=== PATIENT | male | born 1980 | race Caucasian/White ===

== ENCOUNTER → 2019-09-15 15:06 | Outpatient (CLI) | payer OTHER, SELFPAY ==
[2019-09-15 15:37] LABS: Basophils # 0.1 K/mm3 (0-0.2); Basophils % 1.1 % (0.1-2.0); Eosinophils # 0.2 K/mm3 (0.0-0.4); Eosinophils % 4.2 % (0.1-12.0); Hematocrit 46.1 % (42.0-52.0); Hemoglobin 15.1 g/dL (14.1-18.0); Lymphocytes # 1.4 K/mm3 (0.7-4.5); Lymphocytes % 32.9 % (10-50); Mean Corpuscular HGB Conc 32.8 g/dL (31.8-35.4); Mean Corpuscular Hemoglobin 31.2 pg (27.0-31.2); Mean Corpuscular Volume 95.3 fl (80-94); Mean Platelet Volume 7.7 fl (7.4-10.4); Monocytes # 0.5 K/mm3 (0.1-1.0); Monocytes % 10.8 % (1.7-9.3); Neutrophils # 2.2 K/mm3 (1.8-7.8); Neutrophils % 51.1 % (37.0-80.0); Platelet Count 240 K/mm3 (142-424); Red Blood Count 4.84 M/mm3 (4.60-6.20); Red Cell Distribution Width 13.5 % (11.5-17.5); White Blood Count 4.3 K/mm3 (4.8-10.8)
[2019-09-15 15:50] LABS: INR 0.99 (0.9-1.1); Prothrombin Time 10.3 seconds (9.4-11.8)
[2019-09-16 09:34] LABS: Alanine Aminotransferase 40 U/L (12-78); Albumin/Globulin Ratio 1.2 (1.1-1.8); Alkaline Phosphatase 60 U/L (46-116); Anion Gap 11.2 mEq/L (5-15); Aspartate Amino Transferase 25 U/L (15-37); Bilirubin,Total 0.3 mg/dL (0.2-1.0); Blood Urea Nitrogen 15 mg/dL (7-18); Calcium 8.7 mg/dL (8.5-10.1); Carbon Dioxide 28 mmol/L (21.0-32.0); Chloride 104 mmol/L (98-107); Creatinine,Serum 0.91 mg/dL (0.70-1.30); Estimated Glomerular Filt Rate 94 ml/min (>60); GFR (African American) 113 ML/MIN (>60); Globulin 3.3 gm/dl (1.3-3.2); Glucose 77 mg/dL (74-106); Potassium 4.2 mmoL/L (3.5-5.1); Sodium 139 mmol/L (136-145); Total Protein,Serum 7.3 gm/dL (6.4-8.2)
[2019-09-17 08:17] LABS: HIV Screen 4th Generation wRfx Non Reactive (Non Reactive); Hep A Ab, IgM Negative (Negative); Hep A Ab, Total Positive (Negative); Hep B Core Ab, Total Negative (Negative)
[2019-09-17 11:44] LABS: Hep B Surface Ab, Qual Reactive (.); Hepatitis B Surface Antigen Negative (Negative)
[2019-09-19 21:45] LABS: HCV Genotype Charge YES; Hepatitis C Genotype 1a (.)
== END ==
PROVIDERS: Visit Provider Nurse Practitioner Family
DX: B18.2 Chronic viral hepatitis C (principal)
CPT/HCPCS: 36415; 80053; 85025; 85610; 86703; 86704; 86706; 86708; 87340; 87522; 87902; G0432